=== PATIENT | male | born 1990 | race Two or more races ===

== ENCOUNTER → 2020-07-14 | Outpatient (CLI) | payer OTHER | END | disposition home or self-care (01) | LOC: STAR 14:59 | PROVIDERS: ATTEND Orthopaedic Surgery Hand Surgery | DX: Z20.822 Contact with and (suspected) exposure to COVID-19 (principal); S63.511A Sprain of carpal joint of right wrist, initial encounter; X58.XXXA Exposure to other specified factors, initial encounter; Y93.89 Activity, other specified; Y92.89 Other specified places as the place of occurrence of the external cause; Y99.8 Other external cause status | CPT/HCPCS: U0003 ==

== ENCOUNTER 2020-07-20 05:40 | Day surgery (SDC) | payer OTHER ==
[~2020-07-20] VITALS: Ht 170.2 cm; Wt 73.9 kg
[2020-07-20] MEDS ORDERED: EPINEPHRINE 1 MG/ML, 1ML ONE (06:00)
[2020-07-20] MEDS ORDERED: BUPIVACAINE/PF 0.5% ONE (06:00)
[2020-07-20] MEDS ORDERED: no home meds per pt (06:11)
[2020-07-20 06:26] VITALS: BP 131/84
[2020-07-20] MEDS ORDERED: CHLORHEXIDINE 15 ML UDC PO ONE (06:30)
[2020-07-20] MEDS ORDERED: LACTATED RINGERS 1,000 ML IV SCH (06:30)
[2020-07-20] MEDS ORDERED: FENTANYL PF 250 MCG/5ML ONE (06:47)
[2020-07-20] MEDS ORDERED: MIDAZOLAM 1 MG/ML, 2ML ONE (06:47)
[2020-07-20] MEDS ORDERED: DIPHENHYDRAMINE 50 MG/ML, 1ML IVPush PRN (07:00)
[2020-07-20] MEDS ORDERED: FENTANYL PF 100 MCG/2ML IV PRN (07:00)
[2020-07-20] MEDS ORDERED: MEPERIDINE/PF 25MG/0.5ML IVPush PRN (07:00)
[2020-07-20] MEDS ORDERED: OXYcodone 5 MG/5 ML ORAL.SOL UDC PO PRN (07:00)
[2020-07-20] MEDS ORDERED: HYDROmorphone 1 MG/ML, 1ML INJ IVPush PRN (07:00)
[2020-07-20] MEDS ORDERED: hydrALAzine 20 MG/ML, 1ML IV PRN (07:00)
[2020-07-20] MEDS ORDERED: LABETALOL 5MG/ML, 20ML IV PRN (07:00)
[2020-07-20] MEDS ORDERED: PROMETHAZINE 25 MG/ML, 1ML IVPush PRN (07:00)
[2020-07-20] MEDS ORDERED: ACETAMINOPHEN 325 MG TABLET PO PRN (07:00)
[2020-07-20] MEDS ORDERED: HALOPERIDOL 5 MG/ML IV PRN (07:00)
[2020-07-20] MEDS ORDERED: DEXAMETHASONE 4 MG/ML, 1ML ONE (07:06)
[2020-07-20] MEDS ORDERED: KETOROLAC 30 MG/1 ML ONE (07:06)
[2020-07-20] MEDS ORDERED: PROPOFOL 10 MG/ML, 20ML ONE (08:33)
[2020-07-20] MEDS ORDERED: CEFAZOLIN 1,000 MG ONE (08:33)
[2020-07-20] MEDS ORDERED: ONDANSETRON 2MG/ML, 2ML ONE (08:33)
[2020-07-20] MEDS ORDERED: MEPERIDINE/PF 25MG/ML,1ML ONE (08:56)
== END 2020-07-20 10:30 | disposition home or self-care (01) ==
LOC: OUT 05:40 → MERGE 07:00 → OUT 10:30
PROVIDERS: ATTEND Orthopaedic Surgery Hand Surgery
DX: S63.591A Other specified sprain of right wrist, initial encounter (principal); S63.391A Traumatic rupture of other ligament of right wrist, initial encounter; M94.231 Chondromalacia, right wrist; X58.XXXA Exposure to other specified factors, initial encounter; Y93.89 Activity, other specified; Y92.89 Other specified places as the place of occurrence of the external cause; Y99.8 Other external cause status
CPT/HCPCS: 29846; J0171; J0690; J2175; J2250; J2405; J2704; J3010; J7120; J1100; J1885